=== PATIENT | female | born 1990 | race African-American/Black ===

== ENCOUNTER → 2020-04-11 | Outpatient (CLI) | payer MEDICARE, OTHER ==
[2020-04-11 13:50] VITALS: BP 138/86; PULSE 82; TEMP 98.3; BMI 49.1
[2020-04-11 14:56] LABS: HCT 39.9 % (34.0-46.0); HGB 13.7 gm/dL (11.4-16.0); MCH 26.9 pg (25.0-35.0); MCHC 34.4 g/dL (31.0-37.0); MCV 78.1 fL (80.0-100.0); Mean Platelet Volume 6.4; Platelet Count 503 k/uL (150-450); RDW 14.1 % (11.5-15.5); WBC 11.1 k/uL (3.8-10.6)
--- NOTE | 2020-04-11 17:19 | P.HPBAR ---
Bariatric H&P - History & Physicial H&P Date: 04/11/20 History & Physicial: Visit/CC: initial clinic visit Patient initial contact: Initial weight: Initial weight in pounds: Height: 5 ft 8.5 in Initial BMI: Last weight: Current weight: 148.778 kg Current weight in pounds: 328.00 Current BMI: 49.1 [place] body weight (based on NIH guidelines): 64.637 kg Excess body weight loss: The patient is a 29 year-old F who presents for Bariatric Assessment. 29-year-old female presents today to discuss weight loss surgery. Patient has been interested in weight loss surgery for the last year or more. Her sister had previous gastric bypass and did fairly well. Patient currently with BMI 49.1. Complains of mild GERD symptoms. No dysphagia. No prior EGD. Patient has no significant medical history. Denies DVT, no tobacco use, does complain of dyspnea on exertion. No previous abdominal surgeries. Review of Systems The patient denies any acute changes in vision or hearing, no dysphagia or odynophagia, no chest pain or shortness of breath, no dysuria or hematuria, no headache, no runny nose, no rectal bleeding or melena, no unexplained weight lo ss Past Medical History Past Medical History: Hypertension History of Any Multi-Drug Resistant Organisms: None Reported Past Surgical History: Orthopedic Surgery Additional Past Surgical History / Comment(s): jaw surgery Past Anesthesia/Blood Transfusion Reactions: No Reported Reaction Smoking Status: Current some day smoker Surgical - Exam Vital Signs Temp Pulse BP 98.3 F 82 138/86 04/11/20 13:48 04/11/20 13:48 04/11/20 13:48 Physical exam: General: Well-developed, well-nourished HEENT: Normocephalic, sclerae nonicteric Abdomen: Nontender, nondistended Extremities: No edema Neuro: Alert and oriented Results - Labs 04/11/20 14:12 Abnormal Lab Results - Last 24 Hours (Table) 04/11/20 Range/Units 14:12 WBC 11.1 H (3.8-10.6) k/uL MCV 78.1 L (80.0-100.0) fL Plt Count 503 H (150-450) k/uL Bariatric Assessment & Plan (1) Morbid obesity with BMI of 45.0-49.9, adult Narrative/Plan: 29-year-old female with morbid obesity. Surgical options reviewed in detail. Both gastric bypass and sleeve gastrectomy reviewed as surgical options. Risks and benefits of both procedures discussed. Patient remains interested in sleeve gastrectomy. We will plan preoperative EGD. Patient to be seen by her primary care physician. Medical clearance and support documentation will be obtained. The risks of bleeding, infection, stenosis, stricture, leak, abscess, fistula formation, peritonitis, poor weight loss, reflux, vomiting, conversion to an open procedure, aborting sleeve gastrectomy, NE, PE, DVT, and were discussed. The patient understands and wishes to proceed. Status: Acute Bariatric Checklist Checklist: Plan: Checklist: EGD: 1. Hiatal hernia: 2. H. Pylori: HgbA1c: Vitamin D: Smoking: Primary care physician referral: Psychiatry clearance: Cardiology clearance: Sleep study: Diet journal: VTE risk score: VTE risk level: Rehab needs at discharge:
[2020-04-12 02:45] LABS: ALT 15 U/L (8-44); AST 17 U/L (13-35); African American GFR (CKD) 88.2 (60.0-200.0); Alkaline Phosphatase 73 U/L (41-126); Calcium 9.7 mg/dL (8.7-10.3); Carbon Dioxide 24.3 mmol/L (21.6-31.8); Chloride 106 mmol/L (96-109); Glucose 101 mg/dL (70-110); Iron 78 ug/dL (50-170); Non-African American GFR(CKD) 76.1 (60.0-200.0); Potassium 4.1 mmol/L (3.5-5.5); Sodium 140 mmol/L (135-145); Total Bilirubin 0.6 mg/dL (0.2-1.2); Total Protein 7.2 g/dL (6.2-8.2)
[2020-04-12 03:38] LABS: Folate, Serum >24.0 ng/mL
== END | disposition home or self-care (01) ==
LOC: BARWHC3 12:53
PROVIDERS: ATTEND Surgery
DX: E66.01 Morbid (severe) obesity due to excess calories (principal); Z68.42 Body mass index [BMI] 45.0-49.9, adult
CPT/HCPCS: 84425; 80053; 82607; 82746; 83540; 85027; 82306; 83036; 93005; G0463; 99201

== ENCOUNTER 2020-05-14 09:13 | Day surgery (SDC) | payer MEDICARE, OTHER ==
[2020-05-09 15:42] VITALS: BMI 48.6
[~2020-05-14 09:13] MED LIST: LACTATED RINGERS 1,000 ML IV SCH; LIDOCAINE 1% (10MG/ML) FOR IV START INTRADERMA PRN; MIDAZOLAM 2 MG/2 ML VIAL IV PRN
[2020-05-14 09:44] VITALS: RESP 16; TEMP 97.6
[2020-05-14] MEDS ORDERED: MIDAZOLAM 2 MG/2 ML VIAL ONE (09:59)
[2020-05-14] MEDS ORDERED: LIDOCAINE 1% INJ 10MG/ML (20 ML MDV) ONE (09:59)
[2020-05-14] MEDS ORDERED: PROPOFOL 10 MG/ML 20 ML VIAL IV ONE (09:59)
--- NOTE | 2020-05-14 10:02 | P.GSHP ---
History of Present Illness H&P Date: 05/14/20 Chief Complaint: GERD Patient on our service from recent bariatric evaluation. Here today for upper endoscopy. Mild reflux. No dysphagia. Past Medical History Past Medical History: No Reported History History of Any Multi-Drug Resistant Organisms: None Reported Past Surgical History: Orthopedic Surgery Additional Past Surgical History / Comment(s): jaw surgery Past Anesthesia/Blood Transfusion Reactions: No Reported Reaction Smoking Status: Former smoker - Past Family History Mother Family Medical History: No Reported History Medications and Allergies Home Medications Medication Instructions Recorded Confirmed Type Lurasidone [Latuda] 40 mg PO HS 04/03/20 05/09/20 History Etonogestrel [Nexplanon] 1 implant SQ [id number] 05/09/20 05/09/20 History Allergies Allergy/AdvReac Type Severity Reaction Status Date / Time No Known Allergies Allergy Verified 05/14/20 09:29 Surgical - Exam Vital Signs Temp Pulse Resp BP Pulse Ox 97.6 F 88 16 125/60 97 05/14/20 09:42 05/14/20 09:42 05/14/20 09:42 05/14/20 09:42 05/14/20 09:42 Physical exam: General: Well-developed, well-nourished HEENT: Normocephalic, sclerae nonicteric Abdomen: Nontender, nondistended Extremities: No edema Neuro: Alert and oriented Assessment and Plan (1) GERD (gastroesophageal reflux disease) Narrative/Plan: Will proceed with upper endoscopy Current Visit: Yes Status: Acute Code(s): K21.9 - GASTRO-ESOPHAGEAL REFLUX DISEASE WITHOUT ESOPHAGITIS SNOMED Code(s): 475506047
--- NOTE | 2020-05-14 10:10 | P.PCN ---
Date of Procedure: 05/14/20 Procedure(s) Performed: Preoperative Dx: GERD, presurgical Postoperative Dx: Gastritis with small erosions Procedure: EGD with Bx Anesthesia: Sedation Endoscopist: Dr. Salazar Specimens: Antral erosion Endoscopic Procedure: The patient was on the endoscopy table in the left decubitus position. The Olympus gastroscope was inserted into the oropharynx and passed under direct visualization to the region of the third portion of the duodenum. From that point the scope was slowly withdrawn inspecting all houser rfaces carefully. There were no neoplastic inflammatory or polypoid lesions throughout the duodenum. The pylorus was widely patent. The stomach was carefully inspected. There was gastritis present within erosion in the antrum. A biopsy of the antral erosions took place to rule out H. pylori. Retroflexion revealed a normal hiatus. The esophagus was then carefully examined. There were no neoplastic inflammatory or polypoid lesions throughout the visualized esophagus. The patient was then taken to the recovery room in stable condition per anesthesia guidelines. Recommendations: Begin antiacid therapy. Await biopsy results. Follow-up bariatric Center.
[2020-05-14 10:37] VITALS: BP 120/65; PULSE 82
== END 2020-05-14 10:51 | disposition home or self-care (01) ==
LOC: ORWHC2ENDO 09:13
PROVIDERS: ATTEND Surgery
DX: K29.50 Unspecified chronic gastritis without bleeding (principal); R89.7 Abnormal histological findings in specimens from other organs, systems and tissues; K21.9 Gastro-esophageal reflux disease without esophagitis; F41.9 Anxiety disorder, unspecified; F17.210 Nicotine dependence, cigarettes, uncomplicated; Z98.890 Other specified postprocedural states; Z79.899 Other long term (current) drug therapy; Z79.3 Long term (current) use of hormonal contraceptives
CPT/HCPCS: 43239; 81025; 88305; J2250; J2001; J2704

== ENCOUNTER 2020-06-26 15:49 | Inpatient (IN) | payer MEDICARE, OTHER ==
[2020-06-26] MEDS ORDERED: METOCLOPRAMIDE 5 MG/ML 2 ML VIAL IVP STA (17:44)
[2020-06-26] MEDS ORDERED: SODIUM CHLORIDE 0.9% 1,000 ML IV STA (17:44)
[2020-06-26] MEDS ORDERED: MAG HYDROX/AL HYDROX/SIMETH 30 ML, HYOSCYAMINE ELIXIR 10 ML, LIDOCAINE VISCOUS 2% 10 ML PO STA ×3 (17:51)
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
[2020-06-26] MEDS ORDERED: KETOROLAC 15 MG/ML 1 ML VIAL IVP STA (18:49)
[2020-06-26 19:28] LABS: Basophils # (A) 0.1 k/uL (0-0.2); Basophils % (A) 1 %; Eosinophils # (A) 0.7 k/uL (0-0.7); Eosinophils % (A) 5 %; HGB 14.7 gm/dL (11.4-16.0); Lymphocytes % (A) 21 %; MCH 26.5 pg (25.0-35.0); MCHC 34.9 g/dL (31.0-37.0); MCV 75.8 fL (80.0-100.0); Mean Platelet Volume 6.8; Microcytosis Slight; Monocytes # (A) 0.6 k/uL (0-1.0); Monocytes % (A) 5 %; Neutrophils # (A) 9.6 k/uL (1.3-7.7); Neutrophils % (A) 68 %; Platelet Count 499 k/uL (150-450); RBC 5.54 m/uL (3.80-5.40); RDW 14.3 % (11.5-15.5)
[2020-06-26 19:38] LABS: ALT 22 U/L (4-34); AST 34 U/L (14-36); African American GFR (CKD) >90 (>60 ml/min/1.73 sqM); Albumin 4.3 g/dL (3.5-5.0); Alkaline Phosphatase 81 U/L (38-126); Amylase 78 U/L (30-110); Anion Gap 8 mmol/L; Blood Urea Nitrogen 10 mg/dL (7-17); Calcium 9.7 mg/dL (8.4-10.2); Carbon Dioxide 26 mmol/L (22-30); Chloride 103 mmol/L (98-107); Glucose 95 mg/dL (74-99); Lipase 45 U/L (23-300); Non-African American GFR(CKD) >90 (>60 ml/min/1.73 sqM); Potassium 4.5 mmol/L (3.5-5.1); Sodium 137 mmol/L (137-145); Total Bilirubin 0.5 mg/dL (0.2-1.3); Total Protein 7.9 g/dL (6.3-8.2)
--- NOTE | 2020-06-26 20:24 | US ---
EXAMINATION TYPE: US abdomen limited DATE OF EXAM: 06/26/2020 COMPARISON: NONE CLINICAL HISTORY: abdominal pain. abdominal pain x 3 days. EXAM MEASUREMENTS: Liver Length: 18.0 cm Gallbladder Wall: 0.31 cm CBD: 0.27 cm Right Kidney: 12.0 x 6.3 x 4.7 cm Limited due to gas and patient body habitus. Pancreas: Appears heterogeneous. Limited visibility of tail. Liver: Increased echogenicity. Appears to be coarse in echotexture and enlarged. Gallbladder: Appears distended measuring 13.2 cm in length. Two hyperechoic areas with posterior shad owing seen. #1 measures: 1.9 x 1.7 x 1.1 cm. #2, in neck, measures: 1.2 x 1.2 x 0.8 cm. Evidence for sonographic Tamayo's sign: Yes CBD: 0.27 cm. Right Kidney: Measures upper limits of normal. No hydronephrosis or masses seen IMPRESSION: There are gallstones. No dilated ducts.
[2020-06-26] MEDS ORDERED: NALOXONE 0.4 MG/ML 1 ML VIAL IV PRN (21:20)
[2020-06-26] MEDS ORDERED: PIPERACILLIN-TAZOBACTAM 3.375 GM in SODIUM CHLORIDE 0.9% 100 ML IVPB STA (21:24)
[2020-06-26] MEDS: PIPERACILLIN-TAZOBACTAM 3.375 GM in SODIUM CHLORIDE 0.9% 100 ML IVPB SCH (22:00)
[2020-06-26 22:36] LABS: Appearance,Urine Clear (Clear); Bilirubin,Urine Negative (Negative); Blood,Urine Negative (Negative); Color,Urine Yellow; Glucose,Urine (UA) Negative (Negative); Ketones,Urine Negative (Negative); Leukocyte Esterase,Urine Negative (Negative); Nitrite,Urine Negative (Negative); PH, Urine 5.5 (5.0-8.0); Protein,Urine Negative (Negative); Specific Gravity,Urine 1.024 (1.001-1.035); Urobilinogen,Urine <2.0 mg/dL (<2.0)
[2020-06-26] MEDS: KETOROLAC 15 MG/ML 1 ML VIAL IVP SCH (23:32)
[2020-06-27] MEDS: metroNIDAZOLE-NS PMX 500 MG in SALINE 1 100ML.BAG IVPB SCH ×3 (00:05→18:27)
[2020-06-27] MEDS: KETOROLAC 15 MG/ML 1 ML VIAL IVP SCH ×3 (04:14→17:55)
[2020-06-27] MEDS: PIPERACILLIN-TAZOBACTAM 3.375 GM in SODIUM CHLORIDE 0.9% 100 ML IVPB SCH ×4 (04:15→23:05)
[2020-06-27] MEDS ORDERED: ACETAMINOPHEN IV (For NPO) 1,000 MG in EMPTY BAG 1 BAG IVPB PRN (09:21)
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
[2020-06-27] MEDS ORDERED: IV FLUID CONTINUATION 1,000 ML IV ONE (14:15)
[2020-06-27] MEDS ORDERED: ACETAMINOPHEN TAB 500 MG TAB PO PRN (14:52)
[2020-06-27] MEDS ORDERED: GABAPENTIN 300 MG CAP PO PRN (14:52)
[2020-06-27] MEDS ORDERED: INDOCYANINE GREEN 25 MG VIAL IV PRN (14:52)
[2020-06-27] MEDS ORDERED: SCOPOLAMINE 1.5MG/72HR PATCH TRANSDERM PRN (14:52)
--- NOTE | 2020-06-27 14:52 | P.HPADDEND ---
H&P Addendum H&P Addendum Date: 06/27/20 Benefits and risks of robotic cholecystectomy described. Patient's elevated risk due to BMI over 40. We'll proceed with cholecystectomy.
[2020-06-27] MEDS ORDERED: HEPARIN SODIUM,PORCINE/PF 5,000 UNIT/0.5 ML SYRINGE SQ PRN (14:56)
[2020-06-27] MEDS ORDERED: GLYCOPYRROLATE 0.2 MG/ML 2 ML VIAL ONE (15:09)
[2020-06-27] MEDS ORDERED: KETAMINE 10 MG/ML 20 ML VIAL ONE (15:09)
[2020-06-27] MEDS ORDERED: LIDOCAINE 1% INJ 10MG/ML (20 ML MDV) ONE (15:09)
[2020-06-27] MEDS ORDERED: ONDANSETRON 4 MG/2 ML VIAL ONE (15:09)
[2020-06-27] MEDS ORDERED: PROPOFOL 10 MG/ML 20 ML VIAL IV ONE (15:09)
[2020-06-27] MEDS ORDERED: ROCURONIUM 10 MG/ML (5 ML VIAL) IV ONE (15:09)
[2020-06-27] MEDS ORDERED: HYDROmorphone (PF) 1 MG/ML ONE (15:09)
[2020-06-27] MEDS ORDERED: fentaNYL (PF) 50 MCG/ML 2 ML AMP ONE (15:09)
[2020-06-27] MEDS ORDERED: NEOSTIGMINE 1 MG/ML 10 ML VIAL ONE (15:09)
[2020-06-27] MEDS ORDERED: SUCCINYLCHOLINE CHLORIDE 100 MG/5 ML SYR IV ONE (15:09)
[2020-06-27] MEDS ORDERED: INDOCYANINE GREEN 25 MG VIAL IV ONE (15:09)
[2020-06-27] MEDS ORDERED: MIDAZOLAM 2 MG/2 ML VIAL ONE (15:09)
[2020-06-27] MEDS ORDERED: LIDOCAINE 1%-EPI 1:100,000 20 ML VIAL SQ ONE (15:40)
[2020-06-27] MEDS ORDERED: LACTATED RINGERS 1,000 ML IV ONE ×2 (15:54→18:03)
[2020-06-27] MEDS ORDERED: HYDROmorphone 0.5 MG/0.5 ML SYRINGE IVP ONE ×4 (16:55→17:27)
[2020-06-27] MEDS: LACTATED RINGERS 1,000 ML IV SCH (18:29)
[2020-06-27] MEDS ORDERED: SODIUM CHLORIDE 0.9% 2,000 ML IV ONE ×2 (19:20→19:22)
[2020-06-27] MEDS ORDERED: ACETAMINOPHEN TAB 325 MG TAB PO SCH (19:30)
--- NOTE | 2020-06-27 19:34 | P.OP ---
Date of Procedure: 06/27/20 Description of Procedure: SURGEON: ISELA HUBBARD MD PREOPERATIVE DIAGNOSES: 1. Acute cholecystitis due to symptomatic gallstones 2. Right upper quadrant abdominal pain 3. Morbid obesity due to excess calories, BMI 55.1 4. Gastroesophageal reflux disease 5. Generalized anxiety disorder 6. Depressive disorder POSTOPERATIVE DIAGNOSES: 1. Acute cholecystitis due to symptomatic gallstones with sepsis 2. Right upper quadrant abdominal pain 3. Morbid obesity due to excess calories, BMI 55.1 4. Gastroesophageal reflux disease 5. Generalized anxiety disorder 6. Depressive disorder 7. Hepatomegaly 8. Hydrops cholecystitis OPERATION: Robotic-assisted da Dagmar Xi laparoscopic cholecystectomy, multiport with FIREFLY ESTIMATED BLOOD LOSS: 5 mL. SPECIMENS REMOVED: Gallbladder. COMPLICATIONS: None. OPERATIVE FINDINGS: 1. Markedly dilated gallbladder with hydrops cholecystitis 2. Hepatomegaly adding complexity to the case INDICATIONS: The patient is a 30-year-old female who presents with acute cholecystitis with elevated white count, tachypnea, elevated heart rate consistent with sepsis. Robotic assisted laparoscopic approach was described. Benefits and risks of the procedure including but not limited to bleeding, infection, injury to the biliary tree was described. Informed consent was obtained. DESCRIPTION OF PROCEDURE: Patient was brought to the operating room, placed in supine position. After general induction, the abdomen had been prepped and dr aped in standard sterile fashion. The robotic da Dagmar XI system was primed. After a timeout protocol was performed, the patient had been prepped and draped in standard sterile fashion. The patient was injected with indocyanine green. A 5 mm 0 degrees laparoscopic trocar entry was performed along the left upper quadrant. The abdomen insufflated to 15 mmHg pressure which was tolerated well. Diagnostic laparoscopy demonstrated no injury to bowel viscera or mesentery. The liver surface was unremarkable. Next, two 8 mm robotic ports were placed along the right upper abdomen. The camera 8-mm port was maintained along the epigastrium. Another 8 mm port was placed along the left upper abdominal wall after exchanging the 5 mm port. Please note that the ports were placed at least 10 to 15 cm away from the target anatomy of the gallbladder. The robot was docked along the left lateral abdomen. The patient was repositioned in reverse Trendelenburg position. Using a grasper for arm 3, a grasper for arm 4, including hook cautery for arm 1, the robotic system was docked and primed as described. Instruments were interchanged by the hearing and speech assistant including hook cautery, Bovie cautery and clip appliers. I had sat at the console. The gallbladder is markedly dilated hydrops cholecystitis adding complexity to the case. Dome down technique was performed to allow manipulation of the i nfundibulum. A large stone was impacted in the neck of the gallbladder with moderate edema. The infundibulum and cystic duct were dissected free from surrounding tissues. The cystic duct was isolated. FIREFLY was used to identify the cystic artery and cystic structures. A critical view of safety was obtained. Large PLASTIC clips were used throughout the entire case. Using a clip interior decorator, 2 clips were placed at the junction of the infundibulum and cystic duct. The cystic duct was divided between clips. Next, the cystic artery was similarly clipped and cauterized. Electro-Bovie cautery was used to remove the gallbladder from the hepatic fossa. Hemostasis was checked and found to be adequate. The robot was undocked. I re-scrubbed into the case. Using a 15 mm Endo Catch bag via the left upper quadrant incision, the specimen was removed from the abdominal cavity after widening the incision. All pneumoperitoneum instruments were evacuated from the abdominal cavity. The incisions were reapproximated using 4-0 Monocryl in an interrupted subcuticular fashion. The left upper quadrant incision and fascia was oversewn using 0 Vicryl in [place]. The subcutaneous tissue was dense over 6 cm. Please note along the trocar sites, local anesthetic was placed as a field block prior to insertion of all instruments. Liquid glue was applied to the skin. At the end of the procedure needle, sponge, and instrument count had been verified correct by the surgical resident. The patient was transferred to postanesthesia care unit in stable condition.
[2020-06-27] MEDS: ONDANSETRON 4 MG/2 ML VIAL IVP SCH (20:34)
[2020-06-27] MEDS: LURASIDONE 40 MG TAB PO SCH (23:03)
[2020-06-27] MEDS: HYDROmorphone 1 MG/ML 1 ML SYRINGE IVP PRN (23:04)
[2020-06-28] MEDS: KETOROLAC 15 MG/ML 1 ML VIAL IVP SCH ×4 (00:11→18:10)
[2020-06-28] MEDS: ACETAMINOPHEN TAB 500 MG TAB PO SCH ×4 (00:12→18:10)
[2020-06-28] MEDS: metroNIDAZOLE-NS PMX 500 MG in SALINE 1 100ML.BAG IVPB SCH ×3 (01:18→15:55)
[2020-06-28] MEDS: ONDANSETRON 4 MG/2 ML VIAL IVP SCH ×4 (01:20→18:11)
[2020-06-28] MEDS: SODIUM CHLORIDE 0.9% 1,000 ML IV SCH ×4 (01:20→15:56)
[2020-06-28] MEDS: PIPERACILLIN-TAZOBACTAM 3.375 GM in SODIUM CHLORIDE 0.9% 100 ML IVPB SCH ×4 (06:12→21:37)
[2020-06-28 06:20] LABS: Basophils % (A) 0 %; Eosinophils # (A) 0.6 k/uL (0-0.7); Eosinophils % (A) 5 %; HCT 35.3 % (34.0-46.0); HGB 12.3 gm/dL (11.4-16.0); Lymphocytes # (A) 3.2 k/uL (1.0-4.8); Lymphocytes % (A) 26 %; MCH 26.5 pg (25.0-35.0); MCHC 34.7 g/dL (31.0-37.0); MCV 76.4 fL (80.0-100.0); Monocytes # (A) 0.7 k/uL (0-1.0); Monocytes % (A) 6 %; Neutrophils # (A) 7.5 k/uL (1.3-7.7); Neutrophils % (A) 62 %; Platelet Count 413 k/uL (150-450); RBC 4.63 m/uL (3.80-5.40); RDW 14.1 % (11.5-15.5); WBC 12.1 k/uL (3.8-10.6)
[2020-06-28 06:38] LABS: ALT 26 U/L (4-34); AST 33 U/L (14-36); African American GFR (CKD) >90 (>60 ml/min/1.73 sqM); Alkaline Phosphatase 52 U/L (38-126); Anion Gap 3 mmol/L; Blood Urea Nitrogen 8 mg/dL (7-17); Calcium 8.4 mg/dL (8.4-10.2); Carbon Dioxide 25 mmol/L (22-30); Chloride 108 mmol/L (98-107); Glucose 101 mg/dL (74-99); Non-African American GFR(CKD) 85 (>60 ml/min/1.73 sqM); Potassium 4.3 mmol/L (3.5-5.1); Sodium 136 mmol/L (137-145); Total Bilirubin 0.5 mg/dL (0.2-1.3)
[2020-06-28] MEDS: HYDROmorphone 1 MG/ML 1 ML SYRINGE IVP PRN ×4 (07:10→21:38)
[2020-06-28] MEDS: LACTATED RINGERS 1,000 ML IV SCH ×2 (07:40→14:08)
[2020-06-28] MEDS: ENOXAPARIN 30 MG/0.3 ML SYRINGE SQ SCH (08:16)
[2020-06-28] MEDS: PANTOPRAZOLE 40 MG/10 ML VIAL IV SCH (08:16)
--- NOTE | 2020-06-28 10:31 | P.PN ---
Subjective Progress Note Date: 06/28/20 CHIEF COMPLAINT: Acute hydrops cholecystitis with sepsis HISTORY OF PRESENT ILLNESS: The patient is a 30-year-old female status post cholecystectomy for acute hydrops cholecystitis with sepsis. She is postoperative day 1. She reports her initial right upper quadrant abdominal pain has improved but she has appropriate complaints of incisional pain along the left upper quadrant. She is resting comfortably. ROS: No reports of nausea and vomiting. No bowel movements. No fevers or chills. No new chest pain. No productive sputum PHYSICAL EXAM: VITAL SIGNS: Reviewed CONSTITUTIONAL: Well developed and in no acute distress. EYES: Conjuctivae without sclera icterus. Extraocular movements grossly intact. HEAD, EARS, NOSE, THROAT: Moist buccal mucosa. Head is atraumatic, normocephalic. Hears conversational speech. No nasal drainage. NECK: Supple. No thyroidomegaly. RESPIRATORY: Non-labored respirations and equal bilateral excursions. CARDIOVASCULAR: Palpable 2+ radial pulses. Regular rate. Regular rhythm. ABDOMEN: Protuberant. Incisions clean dry and intact. Soft. No peritonitis. Minimal tenderness left upper quadrant. MUSCULOSKELETAL: No gross deformity of the lower extremities noted. No clubbing. No cyanosis. SKIN: Good skin turgor. Well perfused. NEUROLOGIC: Cranial nerves II through XII grossly intact. No focal or lateralizing signs. PSYCH: Appropriate affect. Alert and oriented to person, place and time. CLINICAL LABS: White blood cell count elevated over 12,000. ASSESSMENT: 1. Acute hydrops cholecystitis with sepsis 2. Morbid obesity due to excess calories, BMI 55.1 3. Leukocytosis PLAN: 1. Overall presentation of sepsis including acute hydrops cholecystitis requires inpatient IV antibiotics. Recommend continued IV antibiotics until w yani count normalizes. 2. Will adjust pain management to include adjunct such as abdominal binder 3. Disposition within 24-48 hours pending white count and pain control Objective - Vital Signs Vital signs: Vital Signs Temp 98.0 F 06/28/20 08:07 Pulse 70 06/28/20 08:07 Resp 18 06/28/20 08:07 BP 136/78 06/28/20 08:07 Pulse Ox 100 06/28/20 08:07 Intake & Output 06/27/20 06/28/20 06/28/20 18:59 06:59 18:59 Intake Total 2330 1244 Output Total 5 Balance 2325 1244 Weight 159.665 kg Intake: IV 2009 Intake, IV Titration 4 Amount Sodium Chloride 0.9% 1, 4 000 ml @ 150 mls/hr IV . [facility] Rx#:[id number] Oral 320 1240 Output: Estimated Blood Loss 5 Other: # Voids 1 - Labs CBC & Chem 7: 06/28/20 05:38 06/28/20 05:38 Labs: Abnormal Lab Results - Last 24 Hours (Table) 06/28/20 06/28/20 Range/Units 05:38 05:38 WBC 12.1 H (3.8-10.6) k/uL MCV 76.4 L (80.0-100.0) fL Sodium 136 L (137-145) mmol/L Chloride 108 H (98-107) mmol/L Glucose 101 H (74-99) mg/dL Total Protein 6.0 L (6.3-8.2) g/dL Albumin 3.0 L (3.5-5.0) g/dL Assessment and Plan (1) Sepsis Current Visit: Yes Status: Acute Code(s): A41.9 - SEPSIS, UNSPECIFIED ORGANISM SNOMED Code(s): 37831969 (2) Acute cholecystitis due to biliary calculus Current Visit: Yes Status: Acute Code(s): K80.00 - CALCULUS OF GALLBLADDER W ACUTE CHOLECYST W/O OBSTRUCTION SNOMED Code(s): 57149448862391 (3) Morbid obesity with BMI of 50.0-59.9, adult Current Visit: Yes Status: Acute Code(s): E66.01 - MORBID (SEVERE) OBESITY DUE TO EXCESS CALORIES; Z68.43 - BODY MASS INDEX [BMI] 50.0-59.9, ADULT SNOMED Code(s): 136626222
[2020-06-28] MEDS: SIMETHICONE 40 MG/0.6 ML DROPS 2,000 MG/30 ML BOTTLE PO SCH ×3 (12:58→20:27)
[2020-06-28 20:11] VITALS: PULSE 72
[2020-06-28] MEDS: LURASIDONE 40 MG TAB PO SCH (20:27)
[2020-06-29] MEDS: KETOROLAC 15 MG/ML 1 ML VIAL IVP SCH ×3 (00:14→12:15)
[2020-06-29] MEDS: metroNIDAZOLE-NS PMX 500 MG in SALINE 1 100ML.BAG IVPB SCH ×2 (00:14→08:17)
[2020-06-29] MEDS: ACETAMINOPHEN TAB 500 MG TAB PO SCH ×3 (00:16→12:14)
[2020-06-29] MEDS: ONDANSETRON 4 MG/2 ML VIAL IVP SCH ×3 (00:16→12:17)
[2020-06-29] MEDS: LACTATED RINGERS 1,000 ML IV SCH (02:06)
[2020-06-29] MEDS: HYDROmorphone 1 MG/ML 1 ML SYRINGE IVP PRN ×2 (02:33→06:26)
[2020-06-29] MEDS: SODIUM CHLORIDE 0.9% 1,000 ML IV SCH ×3 (02:34→10:25)
[2020-06-29] MEDS: PIPERACILLIN-TAZOBACTAM 3.375 GM in SODIUM CHLORIDE 0.9% 100 ML IVPB SCH ×2 (06:13→13:42)
[2020-06-29 08:00] LABS: Basophils # (A) 0.1 k/uL (0-0.2); Basophils % (A) 0 %; Eosinophils # (A) 0.8 k/uL (0-0.7); Eosinophils % (A) 7 %; HCT 35.7 % (34.0-46.0); HGB 12.3 gm/dL (11.4-16.0); Lymphocytes # (A) 3.3 k/uL (1.0-4.8); Lymphocytes % (A) 28 %; MCH 26.3 pg (25.0-35.0); MCHC 34.4 g/dL (31.0-37.0); MCV 76.5 fL (80.0-100.0); Mean Platelet Volume 6.5; Monocytes # (A) 0.6 k/uL (0-1.0); Monocytes % (A) 5 %; Neutrophils # (A) 6.8 k/uL (1.3-7.7); Neutrophils % (A) 58 %; Platelet Count 396 k/uL (150-450); RBC 4.67 m/uL (3.80-5.40); RDW 14.2 % (11.5-15.5); WBC 11.7 k/uL (3.8-10.6)
[2020-06-29 08:14] LABS: ALT 24 U/L (4-34); AST 28 U/L (14-36); African American GFR (CKD) >90 (>60 ml/min/1.73 sqM); Albumin 3.1 g/dL (3.5-5.0); Alkaline Phosphatase 59 U/L (38-126); Anion Gap 2 mmol/L; Blood Urea Nitrogen 9 mg/dL (7-17); Calcium 8.4 mg/dL (8.4-10.2); Carbon Dioxide 26 mmol/L (22-30); Chloride 107 mmol/L (98-107); Glucose 91 mg/dL (74-99); Non-African American GFR(CKD) 87 (>60 ml/min/1.73 sqM); Potassium 4.3 mmol/L (3.5-5.1); Sodium 135 mmol/L (137-145); Total Bilirubin 0.6 mg/dL (0.2-1.3); Total Protein 6.2 g/dL (6.3-8.2)
[2020-06-29] MEDS: SIMETHICONE 40 MG/0.6 ML DROPS 2,000 MG/30 ML BOTTLE PO SCH ×2 (08:15→13:42)
[2020-06-29] MEDS: PANTOPRAZOLE 40 MG/10 ML VIAL IV SCH (08:16)
[2020-06-29] MEDS: ENOXAPARIN 30 MG/0.3 ML SYRINGE SQ SCH (08:19)
[2020-06-29 09:21] VITALS: BP 116/73; RESP 20; TEMP 98.8
--- NOTE | 2020-06-29 14:27 | P.PN ---
Progress Note - Text Progress Note Date: 06/29/20 Patient's resting comfortably rib bed. She denies any significant pain. On exam vital signs are stable. Abdomen soft. Incision sites are clean and intact. Patiently discharged home today. She'll follow up Dr. Simmons next week.
--- NOTE | 2020-06-29 21:26 | P.DS ---
Providers Date of admission: 06/27/20 09:18 Expected date of discharge: 06/29/20 Attending physician: Tania Zafar Primary care physician: Luba Ramos - Discharge Diagnosis(es) (1) Sepsis Status: Acute (2) Acute cholecystitis due to biliary calculus Status: Acute (3) Morbid obesity with BMI of 50.0-59.9, adult Status: Acute Hospital Course: POSTOPERATIVE DIAGNOSES: 1. Acute cholecystitis due to symptomatic gallstones with sepsis 2. Right upper quadrant abdominal pain 3. Morbid obesity due to excess calories, BMI 55.1 4. Gastroesophageal reflux disease 5. Generalized anxiety disorder 6. Depressive disorder 7. Hepatomegaly 8. Hydrops cholecystitis COURSE: The patient is a 30-year-old female who presented with acute cholecystitis with elevated white count, tachypnea, elevated heart rate consistent with sepsis. She underwent robotic assisted cholecystectomy without sequlae. Post-operatively she was maintained on antibiotics. Her pain was controlled, she was voiding and tolerating diet prior to discharge. Procedures: OPERATION: Robotic-assisted da Dagmar Xi laparoscopic cholecystectomy, multiport with FIREFLY ESTIMATED BLOOD LOSS: 5 mL. SPECIMENS REMOVED: Gallbladder. COMPLICATIONS: None. OPERATIVE FINDINGS: 1. Markedly dilated gallbladder with hydrops cholecystitis 2. Hepatomegaly adding complexity to the case Patient Condition at Discharge: Good Plan - Discharge Summary Discharge Rx Participant: No New Discharge Prescriptions: New Simethicone [Gas-X] 125 mg PO AC-TID PRN #20 capsule PRN Reason: Pain Acetaminophen Tab [Tylenol Tab] 1,000 mg PO Q6HR PRN #30 tablet PRN Reason: Pain Amoxic-Pot Clav 875-125Mg [Augmentin 875-125] 1 tab PO BID #10 tab Ibuprofen [Motrin] 600 mg PO Q8HR PRN #30 tab PRN Reason: Pain Continue Lurasidone [Latuda] 40 mg PO HS Etonogestrel [Nexplanon] 1 implant SQ [id number] Omeprazole [PriLOSEC] 20 mg PO AC-BRKFST #90 cap Discharge Medication List Lurasidone [Latuda] 40 mg PO HS 04/03/20 [History] Etonogestrel [Nexplanon] 1 implant SQ [id number] 05/09/20 [History] Omeprazole [PriLOSEC] 20 mg PO AC-BRKFST #90 cap 05/14/20 [Rx] Acetaminophen Tab [Tylenol Tab] 1,000 mg PO Q6HR PRN #30 tablet 06/28/20 [Rx] Ibuprofen [Motrin] 600 mg PO Q8HR PRN #30 tab 06/28/20 [Rx] Simethicone [Gas-X] 125 mg PO AC-TID PRN #20 capsule 06/28/20 [Rx] Amoxic-Pot Clav 875-125Mg [Augmentin 875-125] 1 tab PO BID #10 tab 06/29/20 [Rx] Follow up Appointment(s)/Referral(s): Tania Zafar MD [STAFF PHYSICIAN] - 07/02/20 (Please call to confirm time) [facility] - 1-2 days Patient Instructions/Handouts: Low Fat Diet (ED), Laparoscopic Cholecystectomy (DC) Activity/Diet/Wound Care/Special Instructions: Recommend low-fat diet. fluids are encouraged. No lifting pushing pulling over 10 pounds in 2 weeks until July 12July shower. No bath tub soaks hot tubs or swimming for two weeks until July 12 Use Tylenol and ibuprofen or Aleve scheduled for the next 24-48 hours for best pain relief. Use ice along incisions for today to prevent swelling. follow up with physicians as directed. Call physician with any questions comments concerns worsening returning symptoms, fever 101 or higher, not tolerating diet or fluids, pain not controlled by tylenol and motrin. Discharge Disposition: HOME SELF-CARE
== END 2020-06-29 15:51 | disposition home or self-care (01) | DRG 854 ==
LOC: EC 15:49 → 6PED 21:40 → OBSVTOIN 06-27 09:18
PROVIDERS: ADMIT Surgery Plastic and Reconstructive Surgery; ATTEND Surgery Plastic and Reconstructive Surgery
PROC: 8E0W4CZ Robotic Assisted Procedure of Trunk Region, Percutaneous Endoscopic Approach (ICD-10-PCS; principal; 2020-06-27 07:30)
PROC: 0FT44ZZ Resection of Gallbladder, Percutaneous Endoscopic Approach (ICD-10-PCS; principal; 2020-06-27 07:30)
PROC: BF50200 Other Imaging of Bile Ducts using Fluorescing Agent, Indocyanine Green Dye, Intraoperative (ICD-10-PCS; principal; 2020-06-27 07:30)
DX: A41.9 Sepsis, unspecified organism (principal); Z68.43 Body mass index [BMI] 50.0-59.9, adult; K80.63 Calculus of gallbladder and bile duct with acute cholecystitis with obstruction; K82.1 Hydrops of gallbladder; R16.0 Hepatomegaly, not elsewhere classified; E66.01 Morbid (severe) obesity due to excess calories; Z20.822 Contact with and (suspected) exposure to COVID-19; K29.70 Gastritis, unspecified, without bleeding; B96.81 Helicobacter pylori [H. pylori] as the cause of diseases classified elsewhere; K21.9 Gastro-esophageal reflux disease without esophagitis; F41.1 Generalized anxiety disorder; F32.9 Major depressive disorder, single episode, unspecified; F17.201 Nicotine dependence, unspecified, in remission; Z79.3 Long term (current) use of hormonal contraceptives; Z79.899 Other long term (current) drug therapy
CPT/HCPCS: 36415; 76705; 80053; 81003; 81025; 82150; 83605; 83690; 84484; 85025; 87635; 88304; 93005; 96361; 96374; 96375; 99285

== ENCOUNTER 2020-07-09 11:39 | Emergency (ER) | payer MEDICARE, OTHER ==
[2020-07-09 11:47] VITALS: RESP 20; TEMP 97.9
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
[2020-07-09 13:59] LABS: Basophils # (A) 0.1 k/uL (0-0.2); Basophils % (A) 1 %; Eosinophils # (A) 0.6 k/uL (0-0.7); Eosinophils % (A) 6 %; HCT 37.7 % (34.0-46.0); HGB 13.1 gm/dL (11.4-16.0); Lymphocytes # (A) 3.4 k/uL (1.0-4.8); Lymphocytes % (A) 32 %; MCHC 34.6 g/dL (31.0-37.0); MCV 75.2 fL (80.0-100.0); Mean Platelet Volume 6.9; Microcytosis Slight; Monocytes # (A) 0.5 k/uL (0-1.0); Monocytes % (A) 5 %; Neutrophils # (A) 5.9 k/uL (1.3-7.7); Neutrophils % (A) 55 %; Platelet Count 509 k/uL (150-450); RBC 5.02 m/uL (3.80-5.40); RDW 14.3 % (11.5-15.5); WBC 10.7 k/uL (3.8-10.6)
[2020-07-09 14:15] LABS: ALT 20 U/L (4-34); AST 21 U/L (14-36); African American GFR (CKD) >90 (>60 ml/min/1.73 sqM); Albumin 3.8 g/dL (3.5-5.0); Alkaline Phosphatase 72 U/L (38-126); Anion Gap 7 mmol/L; Blood Urea Nitrogen 14 mg/dL (7-17); Calcium 9.3 mg/dL (8.4-10.2); Carbon Dioxide 28 mmol/L (22-30); Chloride 105 mmol/L (98-107); Glucose 83 mg/dL (74-99); Non-African American GFR(CKD) 90 (>60 ml/min/1.73 sqM); Potassium 4.6 mmol/L (3.5-5.1); Sodium 140 mmol/L (137-145); Total Bilirubin 0.5 mg/dL (0.2-1.3); Total Protein 7.2 g/dL (6.3-8.2)
[2020-07-09 15:44] VITALS: BP 144/76; PULSE 87
== END 2020-07-09 15:44 | disposition home or self-care (01) ==
LOC: EC 11:39
DX: K91.872 Postprocedural seroma of a digestive system organ or structure following a digestive system procedure (principal); K21.9 Gastro-esophageal reflux disease without esophagitis; F41.9 Anxiety disorder, unspecified; Z87.891 Personal history of nicotine dependence
CPT/HCPCS: 36415; 80053; 85025; 99283